=== PATIENT | male | born 1960 | race Caucasian/White ===

== ENCOUNTER 2020-06-05 11:28 | Inpatient (IN) | payer SELFPAY ==
[~2020-06-05] VITALS: Ht 162.6 cm; Wt 77.7 kg
[2020-06-05 12:24] LABS: BASOPHIL % 0.5 % (0-2); PLATELET COUNT 179 x10^3mcL (130-400)
[2020-06-05 12:30] LABS: RED CELL DISTRIBUTION WIDTH 15.3 % (11.5-14.5)
[2020-06-05 12:32] LABS: CALCIUM 8.9 mg/dL (8.5-10.1); CARBON DIOXIDE 24.7 mmol/L (21-32); CHLORIDE SERUM 102 mmol/L (98-107); GFR1 > 60 mL/min; GLUCOSE SERUM 290 mg/dL (74-106); POTASSIUM SERUM 4.3 mmol/L (3.5-5.1); SODIUM SERUM 135 mmol/L (136-145)
[2020-06-05 12:38] LABS: ALKALINE PHOSPHATASE 139 U/L (46-116); ALT/SGPT 127 U/L (16-63); AST/SGOT 116 U/L (15-37); BILIRUBIN TOTAL 0.9 mg/dL (0.20-1.00); TOTAL PROTEIN, SERUM 7.4 g/dL (6.4-8.2)
[2020-06-05 12:41] LABS: ALBUMIN 3.2 g/dL (3.4-5.0)
[2020-06-05] MEDS ORDERED: FORTAMET500 M1 PO (15:33)
[2020-06-05] MEDS ORDERED: GLIPIZIDE XL5 M2 (15:34)
[2020-06-05 16:10] VITALS: BP 142/49
[2020-06-05 16:15] VITALS: Ht 162.6 cm; Wt 77.7 kg
[2020-06-05 20:51] VITALS: BP 126/60
[2020-06-06 05:46] VITALS: BP 93/49
[2020-06-06 07:03] LABS: BASOPHIL % 0.3 % (0-2)
[2020-06-06 07:07] LABS: PLATELET COUNT 88 x10^3mcL (130-400); RED CELL DISTRIBUTION WIDTH 14.8 % (11.5-14.5)
[2020-06-06 07:14] LABS: CALCIUM 8.3 mg/dL (8.5-10.1); CARBON DIOXIDE 26.8 mmol/L (21-32); CHLORIDE SERUM 107 mmol/L (98-107); CREATININE SERUM 0.7 mg/dL (0.7-1.3); GFR1 > 60 mL/min; GLUCOSE SERUM 112 mg/dL (74-106); MAGNESIUM 1.8 mg/dL (1.8-2.4); PHOSPHOROUS 2.8 mg/dL (2.5-4.9); POTASSIUM SERUM 3.8 mmol/L (3.5-5.1); SODIUM SERUM 140 mmol/L (136-145)
[2020-06-06 08:06] VITALS: BP 98/50
[2020-06-06 08:15] LABS: BILIRUBIN DIRECT 0.27 mg/dL (0.0-0.2); BILIRUBIN TOTAL 0.6 mg/dL (0.20-1.00)
[2020-06-06 08:18] LABS: ALBUMIN 2.8 g/dL (3.4-5.0); TOTAL PROTEIN, SERUM 6.1 g/dL (6.4-8.2)
[2020-06-06 12:17] VITALS: BP 134/84
[2020-06-06 14:04] VITALS: BP 103/46
[2020-06-06 16:10] VITALS: BP 103/70
[2020-06-06 19:56] VITALS: BP 93/46
[2020-06-07 05:14] VITALS: BP 92/56
[2020-06-07 06:50] LABS: BASOPHIL % 0.5 % (0-2)
[2020-06-07 06:52] LABS: PLATELET COUNT 86 x10^3mcL (130-400); RED CELL DISTRIBUTION WIDTH 14.9 % (11.5-14.5)
[2020-06-07 07:07] LABS: CALCIUM 8.4 mg/dL (8.5-10.1); CARBON DIOXIDE 27.8 mmol/L (21-32); CHLORIDE SERUM 108 mmol/L (98-107); CREATININE SERUM 0.9 mg/dL (0.7-1.3); GFR1 > 60 mL/min; GLUCOSE SERUM 117 mg/dL (74-106); MAGNESIUM 1.7 mg/dL (1.8-2.4); PHOSPHOROUS 3.2 mg/dL (2.5-4.9); SODIUM SERUM 139 mmol/L (136-145)
[2020-06-07 09:26] VITALS: BP 111/62
[2020-06-07 13:08] LABS: AMPHETAMINE QUAL UR NONE DETECTED (See below)
[2020-06-07 13:15] VITALS: BP 117/60
[2020-06-07 14:16] VITALS: BP 117/60
[2020-06-07] MEDS ORDERED: BLOOD GLUCOSE1 EAC3 MC (14:39)
[2020-06-07] MEDS ORDERED: 1ST TIER UNILE1 EAC1 MC (14:39)
[2020-06-07] MEDS ORDERED: EASY COMFORT ALCO70% TOP (14:39)
[2020-06-07] MEDS ORDERED: ACCU-CHEK AVIV1 EACH MC (14:39)
[2020-06-07] MEDS ORDERED: IND20 PO (14:56)
== END 2020-06-07 17:17 | disposition home or self-care (01) | DRG 434 ==
LOC: ED 11:28 → DU 13:33
PROVIDERS: Internal Medicine Gastroenterology; Specialist; ADMIT Internal Medicine; ATTEND Internal Medicine
PROC: 0DB68ZX Excision of Stomach, Via Natural or Artificial Opening Endoscopic, Diagnostic (ICD-10-PCS; principal; 2020-06-06 12:00)
DX: K74.60 Unspecified cirrhosis of liver (principal); I10 Essential (primary) hypertension; E11.9 Type 2 diabetes mellitus without complications; B19.20 Unspecified viral hepatitis C without hepatic coma; Z60.2 Problems related to living alone; Z20.828 Contact with and (suspected) exposure to other viral communicable diseases; M19.90 Unspecified osteoarthritis, unspecified site; R74.0 Nonspecific elevation of levels of transaminase and lactic acid dehydrogenase [LDH]; Z79.84 Long term (current) use of oral hypoglycemic drugs; Z79.899 Other long term (current) drug therapy
CPT/HCPCS: 43235; 82962; C9113; G0378; J1200; J1610; J2250; J2310; J2765; J3010; J3490; J7030; Q0092